=== PATIENT | male | born 1980 | race Caucasian/White ===

== ENCOUNTER 2024-03-16 13:36 | Emergency (ER) | payer OTHER, SELFPAY ==
[2024-03-16 13:40] VITALS: BP 163/106
[2024-03-16 14:10] VITALS: BP 162/97
[2024-03-16 14:20] LABS: Urine Albumin Negative (Neg - Trace); Urine Bilirubin Negative (Negative); Urine Character Clear (Clear); Urine Color Yellow; Urine Glucose Negative (Negative); Urine Ketone Negative (Negative); Urine Leukocyte Negative (Negative); Urine Nitrite Negative (Negative); Urine Occult Blood Negative (Negative); Urine Urobilinogen Negative (Neg - 1+)
[2024-03-16] MEDS: NSS 1000 IV (14:45)
[2024-03-16 14:50] VITALS: BMI 24.9
--- NOTE | 2024-03-16 14:50 | ED.GENMED ---
History of Present Illness
General
Chief Complaint: Back Pain
Time Seen by Provider: 03/16/24 14:09
History of Present Illness
History of Present Illness:
43-year-old male with history of seasonal affective disorder presenting to the emergency department for 'kidney pain '. Patient reports back pain for the past week and overall not feeling right. He is concerned that his sodium is off, is on
Zepbound for weight loss. Feels that his urine is dark. Denies any dysuria. Denies any abdominal pain. Denies chest pain or difficulty breathing. Denies any known sick contacts. Does report that he has been sweating at nighttime. Denies any
history of kidney stones. Denies injury or trauma. Denies additional acute medical complaints
Phy Exam
Physical Exam
Physical Exam:
General: Well-appearing, no clinical signs of dehydration, nontoxic and in no acute distress
HEENT: protecting airway
Neck: appears supple
CV: Normal heart rate, regular rhythm, no evidence of cyanosis
Resp: No accessory muscle use, no increased work of breathing, lungs clear to auscultation bilaterally
Abd: Soft and non-distended, no tenderness to palpation, no CVA tenderness
Extremities: No deformities, no swelling, no erythema
Neuro: alert, no focal neurologic deficit
: deferred
Rectal: deferred
Psych: Normal affect
Skin: Intact
Course
Orders/Labs/Results
Orders:
Orders
03/16/24 14:09
Urinalysis Reflex To Culture Urgent
Date Specimen was Collected: 03/16/24
Time Specimen was Collected: 14:01
03/16/24 14:29
0.9% Sodium Chloride 1000 ml [Nss] 1,000 ml IV BOLUS
03/16/24 14:45
Complete Blood Count/With Diff Urgent
Comprehensive Metabolic Panel Urgent
03/16/24 15:30
Cephalexin Monohydrate [Keflex] 500 mg PO NOW STA
03/16/24 16:22
Lorazepam [Ativan] 1 mg PO NOW STA
Abnormal Lab Results
03/16/24
14:45
RBC 3.83 L 10^6/uL
(4.70-6.10)
Hgb 11.6 L g/dL
(13.0-18.0)
Hct 31.9 L %
(39.0-52.0)
Monocytes % 11.1 H %
(1.7-9.3)
Carbon Dioxide 21 L mmol/L
(22-30)
03/16/24 14:45
03/16/24 14:45
Vital Signs
Initial and Last Documented VS:
Initial Vital Signs
Temp Pulse Resp BP Pulse Ox
98.8 F 98 18 163/106 100
03/16/24 13:40 03/16/24 13:40 03/16/24 13:40 03/16/24 13:40 03/16/24 13:40
Last Documented Vital Signs
Temp Pulse Resp BP Pulse Ox
98.8 F 85 22 164/93 100
03/16/24 13:40 03/16/24 16:00 03/16/24 16:00 03/16/24 16:00 03/16/24 16:00
MDM/Problems Addressed
MDM/Problems Addressed:
43-year-old male presenting to the emergency department for generally feeling unwell and flank pain. Vital signs on arrival are significant for hypertension.
On exam, patient is in no acute distress, however does have strange affect. Patient is afebrile, nontoxic. Overall benign examination. No tenderness to the abdomen. No flank or CVA tenderness. Possible reaction to patient's weight loss
medication. Patient does have some dry mucous membranes, will screen with laboratory analysis and treat with IV fluids. Will check urinalysis for blood in the setting of potential nephrolithiasis or UTI. Again benign abdominal exam with lower
suspicion for any serious intra-abdominal process or infection
14:45 - Urine without any sign of ketones, blood, infection
16:00 -labs are unremarkable, normal electrolyte panel and blood counts. Patient otherwise remains stable. At this time feel that he is stable for discharge. Advised outpatient PCP follow-up. Return precautions discussed and patient verbalized
understanding
*Critical Care Note
Total Time (30-74mins, 75-104mins- exclusive of procedures): Not Applicable
ED Attending Note
-
Portions of this chart may have been created with voice recognition software.� Occasional wrong word or��sound alike� substitutions may have occurred due to the inherent limitations of voice recognition software.
Discharge Plan
Departure
Patient Disposition: Home (Routine Discharge)
Date of Disposition: 03/16/24
Time of Disposition: 16:00
Patient with high blood pressure during this ER visit?: Yes
Condition: Good
Discharge Problem:
Flank pain, acute
Instructions: Upper Back Pain (DC), BLOOD PRESSURE
Prescriptions:
New
lorazepam 1 mg tablet
1 mg PO BID PRN (Reason: anxiety) Qty: 2 0RF
No Action
Cialis
1 tab PO DAILY
Seroquel
1 tab PO DAILY
amlodipine
1 tab PO DAILY
carvedilol
1 tab PO DAILY
enalapril maleate
1 tab PO DAILY
fenofibrate
1 tab PO DAILY
sertraline
1 tab PO DAILY
Referrals:
Yevgeniy Rosenberg MD [Family Provider] -
Activity Restrictions/Additional Instructions:
You were seen in the emergency department for pain in your flank
You were found to have normal laboratory analysis and urinalysis
Please follow-up closely with your primary care physician.
Return to the emergency department for any worsening of your symptoms, or any development of chest pain, difficulty breathing, abdominal pain with persistent vomiting and inability to tolerate food or liquid by mouth (concern for dehydration),
weakness, headache or confusion, fever greater than 100.4, or any additional symptoms that are concerning to you.
Thank you for choosing [facility].
Interventions
Interventions:
*Risk Screen - Suicide Last Done: 03/16/24 13:40
*General Assessment Last Done: 03/16/24 13:40
*Neglect/Abuse Screening Last Done: 03/16/24 14:50
ED- Fall Risk Assessment Last Done: 03/16/24 14:50
*ED COVID-19 Vaccine History Last Done: 03/16/24 13:40
*Nursing Disposition Last Done: 03/16/24 16:15
ED-Musculoskeletal Assessment Last Done: 03/16/24 16:15
Discharge Date and Time
Discharge Date/Time: 03/16/24 16:32
Print Language: [id number]
[2024-03-16 14:58] LABS: % Basophils 0.4 % (0-2); % Eosinophils 0.2 % (0-6); % Immature Granulocytes 0.5 % (0-0.5); % Lymphocytes 40.3 % (20.5-51.1); % Monocytes 11.1 % (1.7-9.3); % Neutrophils 47.5 % (42.2-75.2); Absolute Lymphocytes 2.3 10^3/uL (1.2-3.4); Absolute Monocytes 0.6 10^3/uL (0.1-0.6); Absolute Neutrophils 2.7 10^3/uL (1.4-6.5); Hematocrit 31.9 % (39.0-52.0); Hemoglobin 11.6 g/dL (13.0-18.0); Mean Corp Hgb Conc. 36.4 g/dL (33.0-37.0); Mean Corpuscular Hgb 30.3 pg (27.0-31.0); Mean Corpuscular Volume 83.3 fL (80.0-94.0); Mean Platelet Volume 8.2 fL (7.4-10.4); Nucleated Red Blood Cells % 0 % (-); Platelet Count 286 10^3/uL (130-400); Red Blood Cell Count 3.83 10^6/uL (4.70-6.10); Red Cell Dist. Width 12.2 % (11.5-14.5); White Blood Cell Count 5.7 10^3/uL (4.8-10.8)
[2024-03-16 15:24] LABS: ALT (SGPT) 25 U/L (0-50); AST (SGOT) 28 U/L (17-59); Albumin 4.8 g/dl (3.5-5.0); Alkaline Phosphatase 42 U/L (38-126); Blood Urea Nitrogen 15 mg/dl (9-20); Calcium 9.8 mg/dl (8.4-10.2); Carbon Dioxide 21 mmol/L (22-30); Chloride 98 mmol/L (98-107); Estimated Creatinine Clearance > 125 ml/min; Glucose 99 mg/dl (70-99); Sodium 135 mmol/L (135-145); Total Bilirubin 0.6 mg/dl (0.2-1.3); Total Protein 7.4 g/dl (6.3-8.2); eGFR > 60.00
[2024-03-16 16:00] VITALS: BP 164/93
[2024-03-16] MEDS: ATIVAN 1 MG PO (16:25)
== END 2024-03-16 16:32 | disposition home or self-care (01) ==
LOC: EMR 13:36
PROVIDERS: EMERGENCY PHYSICIAN Student in an Organized Health Care Education/Training Program; FAMILY PHYSICIAN Orthopaedic Surgery
DX: R10.9 Unspecified abdominal pain (principal); I10 Essential (primary) hypertension
CPT/HCPCS: 99284; 96360; 80053; 81003; 85025